=== PATIENT | male | born 1945 ===

== ENCOUNTER 2017-06-29 04:00 | Day surgery (SDC) | payer OTHER ==
[~2017-06-29 04:00] MED LIST: COZAAR50 MG PO; FENOFIBRATE145 MG PO; KALEXATE15 GM PO; LUMIGAN2.5 M1 OP; OMEPRAZOLE20 M1 PO; RECTIV30 GM
[2017-06-29] MEDS ORDERED: RECTICARE30 GM TOP (08:38)
[2017-06-29] MEDS ORDERED: PERCOCET 5-3251 EACH PO (08:38)
== END 2017-06-29 11:05 | disposition home or self-care (01) ==
LOC: CIR.AMB 04:00
DX: K60.1 Chronic anal fissure (principal); K62.6 Ulcer of anus and rectum